=== PATIENT | male | born 1955 | race Caucasian/White ===

== ENCOUNTER 2018-08-13 18:05 | Emergency (ER) | payer OTHER ==
[~2018-08-13] VITALS: Ht 180.3 cm; Wt 97.7 kg
[~2018-08-13 18:05] MED LIST: AMLODIPINE BESYL5 MG PO; ASPIRIN LOW DOS81 M2 PO; ENALAPRIL MALEA10 MG PO; LORTAB 5/3255 MG PO; PERCOCET 10/31 COMBO PO
[2018-08-13 18:35] LABS: HEMATOCRIT 46.4 % (39.0-50.0); IMMATURE GRANULOCYTES 0.5 % (0.0-5.0); MEAN CELL VOLUME 97.9 fL CALC (80.0-100.0); MEAN CORPUSCULAR HGB CONC 34.7 g/L CALC (32.0-36.0); NEUT# 8.02 thou/uL (1.82-7.42); RED BLOOD COUNT 4.74 mill/uL (4.70-6.10); RED CELL DISTRI WIDTH 12.4 % (11.5-15.5)
[2018-08-13 18:37] LABS: HEMOGLOBIN 16.1 g/dl (14.0-18.0)
[2018-08-13 18:43] LABS: ALBUMIN 4.3 g/dL (3.2-5.0); ALKALINE PHOSPHATASE 101 u/l (38-126); ANION GAP 18 (6-22 (CALC)); BILIRUBIN, TOTAL 0.6 mg/dL (0.0-1.4); BUN 12 mg/dL (8-23); BUN/CREATININE RATIO 17 (12-20 (CALC)); CARBON DIOXIDE 20 mmol/l (22-30); CHLORIDE 102 mmol/l (95-108); CREATININE 0.7 mg/dL (0.7-1.3); GFR > 60 ML/MIN (>=60 (CALC)); GFR FOR AFR.AMER. > 60 ML/MIN (>=60 (CALC)); LIPASE 109 u/l (23-300); POTASSIUM 4.1 mmol/l (3.5-5.1); SGOT/AST 22 u/l (19-48); SODIUM 136 mmol/l (137-146); TOTAL PROTEIN 7.2 g/dL (6.3-8.2)
[2018-08-13 18:44] LABS: GFR > 60 ML/MIN (>=60 (CALC)); GFR FOR AFR.AMER. > 60 ML/MIN (>=60 (CALC))
[2018-08-13 19:06] LABS: PROTHROMBIN TIME 10.4 SECONDS (9.0-12.5)
[2018-08-13 20:28] VITALS: BP 172/88
== END 2018-08-13 20:28 | disposition short-term general hospital (02) | DRG 66 ==
LOC: ED 18:05
PROVIDERS: Family Medicine
DX: I63.9 Cerebral infarction, unspecified (principal); R53.1 Weakness; R11.2 Nausea with vomiting, unspecified; H53.2 Diplopia; R29.702 NIHSS score 2; R42 Dizziness and giddiness; R47.1 Dysarthria and anarthria
CPT/HCPCS: Q9967

== ENCOUNTER 2018-11-24 08:00 | Outpatient (RCR) | payer OTHER | END 2018-11-24 09:00 | disposition home or self-care (01) | DRG 149 | LOC: PT 08:00 | PROVIDERS: ATTEND Internal Medicine | DX: R42 Dizziness and giddiness (principal); R26.81 Unsteadiness on feet ==

== ENCOUNTER → 2018-11-30 | Outpatient (REF) | END | disposition home or self-care (01) | DRG 74 | LOC: LAB 07:42 | PROVIDERS: ATTEND Internal Medicine | DX: E11.42 Type 2 diabetes mellitus with diabetic polyneuropathy (principal); R53.83 Other fatigue; Z12.5 Encounter for screening for malignant neoplasm of prostate ==

== ENCOUNTER 2019-10-25 | Day surgery (SDC) | payer MEDICARE, BC ==
[~2019-10-25] MED LIST changes: +ASPIRIN81 MG PO; +B-121000 MC1 PO; +CLOPIDOGREL75 MG PO; +CYANOCOBAL1000 MCG/M IM; +FAMOTIDINE20 M1 PO; +LISINOPRIL10 MG PO; +METOPROL TAR25 MG PO; +MULTIVITAMIN PO; +NORVASC5 M1 PO; +PRAVASTATIN20 MG PO; +SINGULAIR10 MG PO; +TRULICITY0.75 MG/0.
== END 2019-10-25 10:10 | disposition home or self-care (01) ==
PROC: 0DBL8ZX Excision of Transverse Colon, Via Natural or Artificial Opening Endoscopic, Diagnostic (ICD-10-PCS; principal; 2019-10-25)
DX: Z12.11 Encounter for screening for malignant neoplasm of colon (principal); D12.3 Benign neoplasm of transverse colon; K57.30 Diverticulosis of large intestine without perforation or abscess without bleeding; K64.8 Other hemorrhoids; Z80.0 Family history of malignant neoplasm of digestive organs